=== PATIENT | female | born 1985 | race Caucasian/White ===

== ENCOUNTER 2018-09-30 19:49 | Emergency (ER) | payer OTHER ==
[2018-09-30] MEDS ORDERED: ACETAMINOPHEN 325 MG TABLET (FP) PO ONE (20:31)
--- NOTE | 2018-09-30 20:31 | PDOC ---
Rapid Medical Evaluation Medical Evaluation: Allergies Allergy/AdvReac Type Severity Reaction Status Date / Time No Known Allergies Allergy Verified 01/23/12 07:25 I have performed a brief in-person evaluation of this patient. The patient presents with a chief complaint of: C/O LLQ abd pain x 2 days with nausea and fever; denies vomiting, diarrhea, urinary complaints. Denies abdominal surgeries Pertinent physical exam findings: In NAD, abdomen soft, ND, NT I have ordered the following: Labs The patient will proceed to the ED for further evaluation. 09/30/18 20:29
[2018-09-30 20:32] VITALS: BP 109/82; PULSE 88; TEMP 100.1; BMI 26.6
[2018-09-30] MEDS ORDERED: ACETAMINOPHEN 325 MG TABLET (FP) ONE (20:43)
[2018-09-30 20:54] LABS: EOS % 0.9 % (0-4.5); HEMATOCRIT 41.2 % (32.4-45.2); HEMOGLOBIN 14.2 GM/dL (10.7-15.3); LYMPH % 27.8 % (8-40); MCH 29.3 pg (25.7-33.7); MCHC 34.6 g/dl (32.0-36.0); MEAN CELL VOLUME 84.8 fl (80-96); MEAN PLT VOLUME 8.7 fl (7.5-11.1); MONO % 9.7 % (3.8-10.2); NEUT % 60.6 % (42.8-82.8); PLATELET COUNT 273 K/MM3 (134-434); RBC 4.86 M/mm3 (3.60-5.2); RDW 13.6 % (11.6-15.6); WHITE BLOOD COUNT 6.4 K/mm3 (4.0-10.0)
[2018-09-30 21:31] LABS: ALBUMIN 3.7 g/dl (3.4-5.0); ALK PHOS 101 U/L (45-117); ANION GAP 7 MMOL/L (8-16); BILIRUBIN,TOTAL 0.3 mg/dL (0.2-1); BLOOD UREA NITROGEN 16 mg/dL (7-18); CALCIUM 8.3 mg/dL (8.5-10.1); CHLORIDE 108 mmol/L (98-107); CO2 25 mmol/L (21-32); CREATININE 0.9 mg/dL (0.55-1.3); GLUCOSE,RANDOM 93 mg/dL (74-106); POTASSIUM 3.7 mmol/L (3.5-5.1); SGOT/AST 25 U/L (15-37); SGPT/ALT 19 U/L (13-61); SODIUM 139 mmol/L (136-145); TOT PROT 7.8 g/dl (6.4-8.2)
[2018-09-30 21:37] LABS: HCG,QUALITATIVE URINE Negative
--- NOTE | 2018-09-30 21:55 | PDOC ---
History of Present Illness - General Chief Complaint: Pain Stated Complaint: ABDOMINAL PAIN Time Seen by Provider: 09/30/18 21:48 History Source: Patient Exam Limitations: No Limitations - History of Present Illness Initial Comments: Pt is a 33 yo F, with PMH of IBS, who is presenting with complaints of low- grade fever (Tmax 100.6), low appetite, body aches, nausea, and LLQ pain since Thursday afternoon. Pt states last BM was today and was normal, and she only has a BM every few days (normal constipation for pt). She states the LLQ pain is sharp and non-radiating, and is different from her normal IBS crampy pain. She did not take any OTC medications at home for pain or fever. Her LMP was normal, and has no recent vaginal discharge or itching. Pt went to [facility] earlier today , and pt states they told her she had increased WBC and sent her to the ER for further work-up/CT scan for concerns of diverticulitis. Pt denies any headache, vision changes, chest pain, palpitations, SOB, nausea/vomiting, urinary symptoms , diarrhea, or leg swelling. Social: Pt denies any cigarette, alcohol, or drug use. Pt denies any recent travel or sick contacts. Surgical: no relevant history Family: no relevant history 10/04/18 21:01 Past History - Travel Traveled outside of the country in the last 30 days: No Close contact w/someone who was outside of country & ill: No - Past Medical History Allergies/Adverse Reactions: Allergies Allergy/AdvReac Type Severity Reaction Status Date / Time No Known Allergies Allergy Verified 10/03/18 04:27 Home Medications: Ambulatory Orders Cephalexin [Keflex] 500 mg PO BID 5 Days #9 capsule 09/30/18 Ibuprofen 800 mg PO Q8H PRN #12 tablet 10/03/18 Levofloxacin [Levaquin] 500 mg PO DAILY #6 tablet 10/03/18 Asthma: No Cancer: No Cardiac Disorders: No COPD: No Diabetes: No GI Disorders: Yes (IBS) HTN: No Hypercholesterolemia: No Kidney Stones: No Seizures: No - Surgical History Abdominal Surgery: No GI Surgery: No - Suicide/Smoking/Psychosocial Hx Smoking History: Never smoked Have you smoked in the past 12 months: No Information on smoking cessation initiated: No Hx Alcohol Use: No Drug/Substance Use Hx: No Hx Substance Use Treatment: No Review of Systems - Review of Systems Able to Perform ROS?: Yes Is the patient limited Togolese proficient: No Constitutional: Yes: Fever, Loss of Appetite, Malaise, Weight Stable. No: Chills, Diaphoresis, Weakness HEENTM: No: Recent change in vision, Nose Congestion, Throat Pain Respiratory: No: Cough, Shortness of Breath Cardiac (ROS): No: Chest Pain, Syncope ABD/GI: Yes: See HPI, Constipated, Nausea, Poor Appetite. No: Abdominal Distended, Abd. Pain w/ defecation, Blood Streaked Bowels, Diarrhea, Poor Fluid Intake, Rectal Bleeding, Vomiting, Indigestion : No: Dysuria, Frequency, Urgency Musculoskeletal: No: Back Pain, Joint Pain Integumentary: No: Rash Neurological: No: Headache, Weakness, Unsteady Gait Psychiatric: No: Sleep Pattern Change Endocrine: No: Increased Urine, Change in Weight Hematologic/Lymphatic: No: Anemia, Blood Clots, Easy Bleeding, Easy Bruising All Other Systems: Reviewed and Negative *Physical Exam - Vital Signs Last Vital Signs Temp Pulse Resp BP Pulse Ox 100.1 F H 88 18 109/82 98 09/30/18 20:30 09/30/18 20:30 09/30/18 20:30 09/30/18 20:30 09/30/18 20:30 - Physical Exam General Appearance: Yes: Nourished, Appropriately Dressed. No: Apparent Distress HEENT: positive: EOMI, GRETTA, Normal ENT Inspection, Normal Voice, Pharynx Normal , Hearing Grossly Normal. negative: Scleral Icterus (R), Scleral Icterus (L), Pharyngeal Erythema, Tonsillar Exudate, Tonsillar Erythema, Nasal Congestion Neck: positive: Trachea midline, Normal Thyroid, Supple. negative: Tender, Rigid, Lymphadenopathy (R), Lymphadenopathy (L) Respiratory/Chest: positive: Lungs Clear, Normal Breath Sounds. negative: Chest Tender, Respiratory Distress, Accessory Muscle Use, Crackles, Wheezing Cardiovascular: positive: Regular Rhythm, Regular Rate, S1, S2. negative: Edema , JVD, Murmur Vascular Pulses: Carotid (R): 4+, Carotid (L): 4+ Gastrointestinal/Abdominal: positive: Normal Bowel Sounds, Tender (mild tenderness to palpation, L mid abdomen, no rebound, no guarding), Flat, Soft. negative: Organomegaly, Pulsatile Mass, Distended, Guarding, Rebound Rectal Exam: positive: deferred Lymphatic: negative: Adenopathy, Tenderness Musculoskeletal: positive: Normal Inspection. negative: CVA Tenderness Extremity: positive: Normal Capillary Refill, Normal Inspection, Normal Range of Motion, Pelvis Stable. negative: Tender, Pedal Edema Integumentary: positive: Normal Color, Dry, Warm. negative: Jaundice, Clammy, Diaphoresis, Rash Neurologic: positive: employee relations consultant II-XII NML intact, Fully Oriented, Alert, Normal Mood/ Affect, Normal Response, Motor Strength 5/5 Moderate Sedation - Procedure Monitoring Vital Signs: Procedure Monitoring Vital Signs Temperature 100.1 F H 09/30/18 20:30 Pulse Rate 88 09/30/18 20:30 Respiratory Rate 18 09/30/18 20:30 Blood Pressure 109/82 09/30/18 20:30 O2 Sat by Pulse Oximetry (%) 98 09/30/18 20:30 ED Treatment Course - LABORATORY CBC & Chemistry Diagram: 09/30/18 20:40 09/30/18 20:40 - ADDITIONAL ORDERS Additional order review: Laboratory Results 09/30/18 09/30/18 21:25 20:40 Sodium 139 Potassium 3.7 Chloride 108 H Carbon Dioxide 25 Anion Gap 7 L BUN 16 Creatinine 0.9 Creat Clearance w eGFR > 60 Random Glucose 93 Calcium 8.3 L Total Bilirubin 0.3 AST 25 ALT 19 Alkaline Phosphatase 101 Total Protein 7.8 Albumin 3.7 Urine HCG, Qual Negative 09/30/18 20:40 RBC 4.86 MCV 84.8 MCHC 34.6 RDW 13.6 MPV 8.7 D Neutrophils % 60.6 Lymphocytes % 27.8 D Monocytes % 9.7 Eosinophils % 0.9 Basophils % 1.0 - Medications Given in the ED: ED Medications Discontinued Medications Generic Name Dose Route Start Last Admin Trade Name Freq PRN Reason Stop Dose Admin Acetaminophen 650 mg 09/30/18 20:31 09/30/18 20:47 Tylenol - PO 09/30/18 20:32 650 mg ONCE ONE Administration Medical Decision Making - Medical Decision Making Pt was seen at bedside, also will be seen by attending Dr. Doyle. Pt presenting with complaints of low-grade fever (Tmax 100.6), low appetite, body aches, nausea, and LLQ pain since Thursday afternoon. Pt states last BM was today and was normal, and she only has a BM every few days (normal constipation) . She did not take any OTC medications at home for pain or fever. Her LMP was normal, and has no recent vaginal discharge or itching. Pt went to [facility] earlier today, and pt states they told her she had increased WBC and sent her to the ER for further work-up/CT scan. Pt denies any headache, vision changes, chest pain, palpitations, SOB, nausea/vomiting, urinary symptoms, diarrhea, or leg swelling. PE showed clear heart and lung sounds. Abdominal exam with tenderness to L middle abdominal area, no rebound, no guarding, no CVA tenderness. Considering viral syndrome (influenza vs enteritis) vs diverticulitis vs UTI vs appendicitis vs constipation vs IBS exacerbation. Minimal concern for obstruction in this pt as no prior abdominal surgery, pt tolerating PO intake, no vomiting, and BMs are normal for pt every 2-3 days. Ordered work-up including CBC, CMP, UA, urine . Provided 650 mg PO tylenol for improvement of pain. Will continue to reassess pt and monitor for symptomatic improvement. 09/30/18 22:28 UA showed urinary tract infection (+ leuk esterase +WBC +RBC). CT scan not indicated at this time, as pt discomfort is minimal and has been controlled with PO tylenol, UTI likely source of infection. Providing 500 mg Keflex PO for pt first dose. Sent 500 mg PO Keflex BID x5 days to pt pharmacy. 09/30/18 23:02 10/03/18 16:41 *DC/Admit/Observation/Transfer Diagnosis at time of Disposition: Urinary tract infection Qualifiers: Urinary tract infection type: acute cystitis Hematuria presence: without hematuria Qualified Code(s): N30.00 - Acute cystitis without hematuria - Discharge Dispostion Disposition: HOME Condition at time of disposition: Improved Decision to Admit order: No - Prescriptions Prescriptions: Cephalexin [Keflex] 500 mg PO BID 5 Days #9 capsule - Referrals Referrals: Ehsan Méndez MD [Primary Care Provider] - - Patient Instructions Printed Discharge Instructions: DI for Urinary Tract Infection (UTI) Additional Instructions: You were seen in the ER today for abdominal pain and fever. The results of your labs and imaging today showed a urinary tract infection in your urine. Please follow-up with your primary care doctor within 1-2 days to discuss your visit and make sure your symptoms have improved. Please return to the ER if you have any worsening pain, development of fevers or chills, blood in your urine or stool, loss of consciousness, inability to tolerate food or fluids, or any other concerns. - Post Discharge Activity
[2018-09-30 22:00] LABS: URINE APPEARANCE SLCLOUDY; URINE BILIRUBIN NEGATIVE (<2.0 mg/dL); URINE COLOR AMBER; URINE GLUCOSE (UA) NEGATIVE (NEGATIVE); URINE KETONE TRACE (NEGATIVE); URINE LEUK ESTERASE 2+ (NEGATIVE); URINE NITRITE NEGATIVE (NEGATIVE); URINE PROTEIN 1+ (NEGATIVE); URINE UROBILINOGEN 4.0 E.U/dl mg/dL (0.2-1.0)
[2018-09-30 22:12] LABS: EPI CELLS FEW /HPF (FEW); URINE MUCUS MANY
--- NOTE | 2018-09-30 22:45 | PDOC ---
Attending Attestation - HPI HPI: 09/30/18 22:52 The patient is a 33 year old female with a significant past medical history of IBS who presents to the ED with left lower quadrant pain and generalized body aches. Patient states she went to [facility] earlier today and was told she had a white count, negative UA and was diagnosed with diverticulitis. Patient was sent to the ED by [facility] to get a CT. Upon arrival to the ED, patient has no complaints. Denies fever or chills. Denies dysuria. Denies chest pain or shortness of breath. Denies nausea, vomiting, or diarrhea. Denies any other symptoms. - Physicial Exam PE: 09/30/18 22:53 Constitutional: + warm to touch. Awake, alert, oriented. No acute distress. Head: Normocephalic. Atraumatic Eyes: PERRL. EOMI. Conjunctivae are not pale. ENT: Mucous membranes are moist and intact. Posterior pharynx without exudates or erythema. Uvula midline. Neck: Supple. Full ROM. No lymphadenopathy. Cardiovascular: Regular rate. Regular rhythm. S1, S2 regular. Distal pulses are 2+ and symmetric. Pulmonary/Chest: No evidence of respiratory distress. Clear to auscultation bilaterally No wheezing, rales or rhonchi. Abdominal: Soft and non-distended. There is no tenderness. No rebound, guarding or rigidity. No organomegaly. No palpable masses. Good bowel sounds. Back: No CVA tenderness. Musculoskeletal: No edema. No cyanosis. No clubbing. Full range of motion in all extremities. Nocalf tenderness. Radial/pedal pulses are intact and 2+ bilaterally Skin: Skin is warm and dry. No petechiae. No purpura. Neurological: Alert and oriented to person, place, and time. Cranial nerves II -XII are grossly intact. Normal speech. Strength is grossly symmetric. No sensory deficits. Psychiatric: Good eye contact. Normal interaction, affect and behavior. <Carmen Leos - Last Filed: 09/30/18 22:52> - Resident Resident Name: Julisa Edgar - ED Attending Attestation I have performed the following: I have examined & evaluated the patient, The case was reviewed & discussed with the resident, I agree w/resident's findings & plan, Exceptions are as noted - Medical Decision Making 09/30/18 22:45 I, Dr. Gsiele Doyle, DO, attest that this document has been prepared under my direction and personally reviewed by me in its entirety. I further attest, that it accurately reflects all work, treatment, procedures and medical decision -making performed by me. 09/30/18 22:57 a/p: 33yo female with low grade temp sent from urgent care for eval of abd pain -no n/v/d -nontoxic in appearance -no elevated wbc -no LLQ ttp, abd is soft and nontender -no rebound or guarding -no cva ttp -pt with UTI on labs - will treat with keflex -stable for dc to home and treatment with outpt abx <Gisele Doyle - Last Filed: 09/30/18 22:59> Attestations - Attestations 09/30/18 22:53 Documentation prepared by Carmen Leos, acting as medical biller coder for Gisele Doyle DO <Carmen Leos - Last Filed: 09/30/18 22:52>
[2018-09-30] MEDS ORDERED: CEPHALEXIN MONOHYDRATE 500 MG CAPSULE (UD) PO ONE (22:59)
[2018-09-30] MEDS ORDERED: CEPHALEXIN MONOHYDRATE 500 MG CAPSULE (UD) ONE (23:09)
== END 2018-09-30 23:15 | disposition home or self-care (01) ==
LOC: JER 19:49
DX: N30.00 Acute cystitis without hematuria (principal)
CPT/HCPCS: 36415; 80053; 81003; 81015; 84703; 85025; 99283-25

== ENCOUNTER 2018-10-03 03:09 | Emergency (ER) | payer OTHER ==
--- NOTE | 2018-10-03 03:29 | PDOC ---
History of Present Illness - General Stated Complaint: LOWER ABD PAIN Time Seen by Provider: 10/03/18 03:21 History Source: Patient Exam Limitations: No Limitations - History of Present Illness Travel History: No Initial Comments: 10/03/18 03:35 Best Contact: PCP:Dr. Quiles Pmhx:Hyperthyroid, IBS Pshx:Denies Allergies: NKDA FH:denies Social Hx: Cigarettes/ denies Alcohol/ social Drugs/denies LMP: 09/20/2018 33-year-old female presents to the ER for the second time. Patient was seen in the ER here at [facility] emergency department 3 days ago. Patient comes to the ER today complaining of left lower quadrant abdominal discomfort without fever, chills, nausea/vomiting/diarrhea, headache, dizziness, lightheadedness, neck/back pains, chest pain, shortness of breath, flank pains, urinary symptoms: Frequency/urgency/hesitancy, hematuria. Patient states she was seen in the emergency department 3 days ago and was discharged with a urinary tract infection and treated with Keflex 500 mg by mouth twice a day 5 days which patient had completed 2 days of. Patient has a history of IBS but states the symptoms are different. Past History - Past Medical History Allergies/Adverse Reactions: Allergies Allergy/AdvReac Type Severity Reaction Status Date / Time No Known Allergies Allergy Verified 10/03/18 04:27 Home Medications: Ambulatory Orders Cephalexin [Keflex] 500 mg PO BID 5 Days #9 capsule 09/30/18 Ibuprofen 800 mg PO Q8H PRN #12 tablet 10/03/18 Levofloxacin [Levaquin] 500 mg PO DAILY #6 tablet 10/03/18 Asthma: No Cancer: No Cardiac Disorders: No COPD: No Diabetes: No GI Disorders: Yes (IBS) HTN: No Seizures: No Thyroid Disease: Yes (Hyper?) - Suicide/Smoking/Psychosocial Hx Smoking History: Never smoked Have you smoked in the past 12 months: No Hx Alcohol Use: No Drug/Substance Use Hx: No Hx Substance Use Treatment: No Review of Systems - Review of Systems Able to Perform ROS?: Yes Comments:: 10/03/18 03:28 CONSTITUTIONAL: Absent: fever, chills, diaphoresis, generalized weakness, malaise, loss of appetite HEENT: Absent: rhinorrhea, nasal congestion, throat pain, throat swelling, difficulty swallowing, mouth swelling, ear pain, eye pain, visual Changes CARDIOVASCULAR: Absent: chest pain, loss of consciousness, palpitations, irregular heart rate, peripheral edema RESPIRATORY: Absent: cough, shortness of breath, dyspnea with exertion, orthopnea, wheezing, stridor, hemoptysis GASTROINTESTINAL: +LLQ pain Absent: abdominal distension, nausea, vomiting, diarrhea, constipation, melena, hematochezia GENITOURINARY: Absent: dysuria, frequency, urgency, hesitancy, hematuria, flank pain, genital pain MUSCULOSKELETAL: Absent: myalgia, arthralgia, joint swelling SKIN: Absent: rash, itching, pallor HEMATOLOGIC/IMMUNOLOGIC: Absent: easy bleeding, easy bruising, lymphadenopathy, frequent infections ENDOCRINE: Absent: unexplained weight gain, unexplained weight loss, heat intolerance, cold intolerance NEUROLOGIC: Absent: headache, focal weakness or paresthesias, dizziness, unsteady gait, seizure, mental status changes, bladder or bowel incontinence PSYCHIATRIC: Absent: anxiety, depression, suicidal or homicidal ideation, hallucinations. 10/03/18 03:35 Is the patient limited Hong Konger proficient: No *Physical Exam - Physical Exam Comments: 10/03/18 03:28 GENERAL: Well developed, well nourished. Awake and alert. No acute distress. HEENT: Normocephalic, atraumatic. PERRLA, EOMI. No conjunctival pallor. Sclera are non- icteric. Moist mucous membranes. Oropharynx is clear. NECK: Supple. Full ROM. No JVD. Carotid pulses 2+ and symmetric, without bruits. No thyromegaly. No lymphadenopathy. CARDIOVASCULAR: Regular rate and rhythm. No murmurs, rubs, or gallops. Distal pulses are 2+ and symmetric. PULMONARY: No evidence of respiratory distress. Lungs clear to auscultation bilaterally. No wheezing, rales or rhonchi. ABDOMINAL: +LLQ pain on palp Soft. Non-distended. No rebound or guarding. No organomegaly. Normoactive bowel sounds. MUSCULOSKELETAL Normal range of motion at all joints. No bony deformities or tenderness. No CVA tenderness. EXTREMITIES: No cyanosis. No clubbing. No edema. No calf tenderness. SKIN: Warm and dry. Normal capillary refill. No rashes. No jaundice. NEUROLOGICAL: Alert, awake, appropriate. Cranial nerves 2-12 intact. No deficits to light touch and temperature in face, upper extremities and lower extremities. No motor deficits in the in face, upper extremities and lower extremities. Normoreflexic in the upper and lower extremities. Normal speech. Toes are down- going bilaterally. Gait is normal without ataxia. ED Treatment Course - LABORATORY CBC & Chemistry Diagram: 10/03/18 03:17 10/03/18 03:17 - RADIOLOGY Radiograph Interpretation: 10/03/18 03:29 CT abd/pelvis with iv contrast: There is a moderate amount of pelvic ascites. This is likely from a ruptured overdrink adnexal cyst. There are multiple cysts in the left ovary one of which could have was rupturing. No bowel structure. Negative for diverticulitis or colitis. There is some wall thickening of the jejunal loops in generalized mild hyperemia of the bowel wall. This is a nonspecific finding but there could be a gastroenteritis unrelated to the In findings. Normal kidneys urinary tracts urinary bladder. Normal liver. US transvaginal r/o Ovarian torsion Progress Note - Progress Note Progress Note: 0701hrs: Signed out to LAKSHMI Morel. awaiting US report *DC/Admit/Observation/Transfer Diagnosis at time of Disposition: Urinary tract infection, Ovarian cyst - Discharge Dispostion Disposition: HOME Condition at time of disposition: Stable - Prescriptions Prescriptions: Ibuprofen 800 mg PO Q8H PRN #12 tablet PRN Reason: pain Levofloxacin [Levaquin] 500 mg PO DAILY #6 tablet - Referrals Referrals: Ehsan Méndez MD [Primary Care Provider] - Pricilla Gmoez MD [Staff Physician] - - Patient Instructions Printed Discharge Instructions: Ovarian Cyst Additional Instructions: Your CAT scan and ultrasound was normal. Take medication as prescribed. Follow- up referred to [facility] for reassessment in a few days. - Post Discharge Activity Forms/Work/School Notes: Back to Work
[2018-10-03 03:43] LABS: BASO % 0.2 % (0-2.0); HEMATOCRIT 42.4 % (32.4-45.2); HEMOGLOBIN 14.8 GM/dL (10.7-15.3); LYMPH % 30.1 % (8-40); MCH 29.4 pg (25.7-33.7); MCHC 34.8 g/dl (32.0-36.0); MEAN CELL VOLUME 84.5 fl (80-96); MEAN PLT VOLUME 8.8 fl (7.5-11.1); NEUT % 59.7 % (42.8-82.8); PLATELET COUNT 316 K/MM3 (134-434); RBC 5.02 M/mm3 (3.60-5.2); RDW 13.7 % (11.6-15.6); WHITE BLOOD COUNT 9.7 K/mm3 (4.0-10.0)
[2018-10-03 03:44] LABS: URINE APPEARANCE CLOUDY; URINE BILIRUBIN NEGATIVE (<2.0 mg/dL); URINE COLOR DKYELLOW; URINE GLUCOSE (UA) NEGATIVE (NEGATIVE); URINE KETONE NEGATIVE (NEGATIVE); URINE LEUK ESTERASE 3+ (NEGATIVE); URINE NITRITE NEGATIVE (NEGATIVE); URINE PROTEIN 1+ (NEGATIVE)
[2018-10-03 03:46] LABS: HCG,QUALITATIVE URINE Negative
[2018-10-03 03:55] LABS: EPI CELLS MANY /HPF (FEW); URINE BACTERIA FEW /hpf (NONE SEEN); URINE MUCUS RARE
[2018-10-03 04:27] VITALS: TEMP 97.8; BMI 25.8
[2018-10-03 04:31] LABS: ALBUMIN 3.6 g/dl (3.4-5.0); ALK PHOS 99 U/L (45-117); ANION GAP 8 MMOL/L (8-16); BILIRUBIN,TOTAL 0.2 mg/dL (0.2-1); BLOOD UREA NITROGEN 16 mg/dL (7-18); CALCIUM 8.6 mg/dL (8.5-10.1); CHLORIDE 105 mmol/L (98-107); CO2 28 mmol/L (21-32); CREATININE 0.9 mg/dL (0.55-1.3); GLUCOSE,RANDOM 97 mg/dL (74-106); SGOT/AST 26 U/L (15-37); SGPT/ALT 22 U/L (13-61); SODIUM 140 mmol/L (136-145); TOT PROT 7.6 g/dl (6.4-8.2)
--- NOTE | 2018-10-03 07:18 | PDOC ---
*Physical Exam - Vital Signs Last Vital Signs Temp Pulse Resp BP Pulse Ox 97.8 F 82 19 131/78 98 10/03/18 03:09 10/03/18 03:09 10/03/18 03:09 10/03/18 03:09 10/03/18 03:09 - Physical Exam Comments: 10/03/18 07:20 I resumed care of this 33-year-old female with herpes present with complaint of left lower quadrant pain without fever or vomiting or diarrhea. Patient was seen 3 days ago in the ER with UTI symptoms and discharged home on Keflex by reported having left lower quadrant pain. Abdominal CT done shows no acute findings except multiple ovarian cysts with mild fluid which could be the source of patient's pain. Abdominal pelvic ultrasound ordered. The patient be discharged based on ultrasound results. General Appearance: Yes: Nourished, Appropriately Dressed HEENT: positive: Normal ENT Inspection Neck: positive: Supple Respiratory/Chest: negative: Respiratory Distress, Accessory Muscle Use Cardiovascular: positive: Regular Rhythm, Regular Rate Musculoskeletal: positive: Normal Inspection Extremity: positive: Normal Inspection Integumentary: positive: Normal Color Neurologic: positive: Fully Oriented, Alert, Normal Mood/Affect ED Treatment Course - LABORATORY CBC & Chemistry Diagram: 10/03/18 03:17 10/03/18 03:17 - ADDITIONAL ORDERS Additional order review: Laboratory Results 10/03/18 10/03/18 03:17 03:17 Sodium 140 Potassium 4.0 Chloride 105 Carbon Dioxide 28 Anion Gap 8 BUN 16 Creatinine 0.9 Creat Clearance w eGFR > 60 Random Glucose 97 Calcium 8.6 Total Bilirubin 0.2 AST 26 ALT 22 Alkaline Phosphatase 99 Total Protein 7.6 Albumin 3.6 Urine Color Dkyellow Urine Appearance Cloudy Urine pH 6.0 Ur Specific [place] 1.028 Urine Protein 1+ H Urine Glucose (UA) Negative Urine Ketones Negative Urine Blood 1+ H Urine Nitrite Negative Urine Bilirubin Negative Urine Urobilinogen 2.0 H Ur Leukocyte Esterase 3+ H Urine WBC (Auto) 69 Urine RBC (Auto) 6 Ur Epithelial Cells Many Urine Bacteria Few Urine Mucus Rare Urine HCG, Qual Negative 10/03/18 03:17 RBC 5.02 MCV 84.5 MCHC 34.8 RDW 13.7 MPV 8.8 Neutrophils % 59.7 Lymphocytes % 30.1 Monocytes % 9.0 Eosinophils % 1.0 Basophils % 0.2 - Medications Given in the ED: ED Medications Discontinued Medications Generic Name Dose Route Start Last Admin Trade Name Hernanq PRN Reason Stop Dose Admin Levofloxacin 500 mg in 100 mls @ 100 mls/hr 10/03/18 05:09 10/03/18 05:59 Levaquin 500 Mg Premixed Ivpb - IVPB 10/03/18 06:08 100 mls/hr ONCE ONE Administration Protocol Medical Decision Making - Medical Decision Making 10/03/18 07:22 I resumed care of this 33-year-old female with herpes present with complaint of left lower quadrant pain without fever or vomiting or diarrhea. Patient was seen 3 days ago in the ER with UTI symptoms and discharged home on Keflex by reported having left lower quadrant pain. Abdominal CT done shows no acute findings except multiple ovarian cysts with mild fluid which could be the source of patient's pain. Abdominal pelvic ultrasound ordered. The patient be discharged based on ultrasound results.CBC, CMP labs are unremarkable with no elevated white count. Patient afebrile. 10/03/18 08:05 Pelvic ultrasound negative asserts free fluid which could be attributed to ruptured ovarian cyst. Patient reported no pain now. Patient is stable for discharge on NSAIDs and Levaquin antibiotics for UTI with [facility] follow-up. *DC/Admit/Observation/Transfer Diagnosis at time of Disposition: Urinary tract infection Qualifiers: Urinary tract infection type: acute cystitis Hematuria presence: without hematuria Qualified Code(s): N30.00 - Acute cystitis without hematuria Ovarian cyst Qualifiers: Laterality: left Qualified Code(s): N83.202 - Unspecified ovarian cyst, left side - Discharge Dispostion Disposition: HOME Condition at time of disposition: Stable Decision to Admit order: No - Prescriptions Prescriptions: Ibuprofen 800 mg PO Q8H PRN #12 tablet PRN Reason: pain Levofloxacin [Levaquin] 500 mg PO DAILY #6 tablet - Referrals Referrals: Ehsan Mnédez MD [Primary Care Provider] - Pricilla Gomez MD [Staff Physician] - - Patient Instructions Printed Discharge Instructions: Ovarian Cyst Additional Instructions: Your CAT scan and ultrasound was normal. Take medication as prescribed. Follow- up referred to [facility] for reassessment in a few days. - Post Discharge Activity Forms/Work/School Notes: Back to Work
[2018-10-03 08:32] VITALS: BP 111/69; PULSE 71
== END 2018-10-03 08:32 | disposition home or self-care (01) ==
LOC: JER 03:09
DX: N39.0 Urinary tract infection, site not specified (principal); N83.202 Unspecified ovarian cyst, left side
CPT/HCPCS: 36415; 74177-TC; 76830-TC; 76856-TC; 80053; 81003; 81015; 84703; 85025; 87086; 99284-25